=== PATIENT | male | born 1985 | race Caucasian/White ===

== ENCOUNTER 2019-12-16 22:48 | Emergency (ER) | payer OTHER ==
[~2019-12-16] VITALS: Ht 193 cm; Wt 90.7 kg
--- NOTE | 2019-12-16 22:51 | NUR ---
ED Nurse Note: Pt brought in by ambulance from home s/p seizure at home. Per girlfriend, he was standing and fell to the ground, hitting head and shaking x1min. PT is confused, Pt is A&ox2. VSS, Pt placed on human resources team member
[2019-12-16] MEDS ORDERED: XANAX0.25 MG ORAL (22:53)
[2019-12-16 23:00] VITALS: BP 139/69
[2019-12-16 23:10] LABS: BASOPHILS % (AUTO) 1.2 % (0.0-2.0); EOSINOPHILS % (AUTO) 0.3 % (0.0-3.0); HEMATOCRIT 49.3 % (42.0-52.0); HEMOGLOBIN 16.9 G/DL (14.2-18.0); LYMPHOCYTES % (AUTO) 29.8 % (20.0-45.0); MEAN CORPUSCULAR VOLUME 105 FL (80-99); MONOCYTES % (AUTO) 12.6 % (1.0-10.0); NEUTROPHILS % (AUTO) 56.2 % (45.0-75.0); PLATELET COUNT 210 K/UL (150-450); RED BLOOD COUNT 4.71 M/UL (4.70-6.10); RED CELL DISTRIBUTION WIDTH 11.4 % (11.6-14.8); WHITE BLOOD COUNT 12.6 K/UL (4.8-10.8)
[2019-12-16 23:36] LABS: ANION GAP 21 mmol/L (5-15); BLOOD UREA NITROGEN 9 mg/dL (7-18); CALCIUM 9.7 MG/DL (8.5-10.1); CARBON DIOXIDE 24 MMOL/L (21-32); CHLORIDE 99 MMOL/L (98-107); CREATININE 1.1 MG/DL (0.55-1.30); POTASSIUM 3.4 MMOL/L (3.5-5.1); SODIUM 143 MMOL/L (136-145)
--- NOTE | 2019-12-16 23:44 | Emergency Room Report ---
History of Present Illness General Chief Complaint: Seizure Source: Family Member, EMS Present Illness HPI Is a 34-year-old male presents after witnessed seizure. Patient had recently stopped drinking alcohol. Previously reports drinking alcohol daily for prolonged period of time. Patient states he also takes Xanax as well as Ativan intermittently. Patient had had some episodes of increased muscle spasming as well as nausea and vomiting. Had not been having any hematemesis or bloody stools recently. Reports having increased epigastric pain. Denies any recent trauma. Allergies: Coded Allergies: No Known Allergies (Unverified , 12/16/19) Patient History Past Medical History: see triage record Reviewed Nursing Documentation: PMH: Agreed; PSxH: Agreed Nursing Documentation-PM Past Medical History: No History, Except For Review of Systems All Other Systems: negative except mentioned in HPI Physical Exam Vital Signs Date Time Temp Pulse Resp B/P (MAP) Pulse Ox O2 Delivery O2 Flow Rate FiO2 12/16/19 22:44 104 18 139/69 (92) 98 Sp02 EP Interpretation: reviewed, normal General Appearance: normal inspection, well appearing, no apparent distress, alert, GCS 15 Head: atraumatic ENT: normal ENT inspection, hearing grossly normal, normal voice Neck: normal inspection, full range of motion, supple, no bony tend Respiratory: normal inspection, lungs clear, normal breath sounds, no respiratory distress, no retraction, no wheezing Cardiovascular #1: regular rate, rhythm, no edema Gastrointestinal: normal inspection, normal bowel sounds, non tender, soft, no guarding, no hernia Genitourinary: no CVA tenderness Musculoskeletal: normal inspection, back normal, normal range of motion Neurologic: alert, motor strength/tone normal, lehr attendant III-XII nml as tested, oriented x3, responsive, speech normal, normal inspection Psychiatric: normal inspection, judgement/insight normal, mood/affect normal Medical Decision Making Diagnostic Impression: Primary Impression: Alcohol abuse Additional Impression: Alcohol withdrawal seizure ER Course Patient presented for seizure. Differential diagnosis included alcohol withdrawal, hyponatremia, cysticercosis, electrolyte abnormality, mass lesion, or cranial hemorrhage. Imaging studies were ordered to patient's complaints of low back pain after the seizure. CT imaging read by radiology showed no evidence of acute abdominal process with some fatty liver. Patient was given medications for alcohol withdrawal including Ativan as well as GI cocktail. He was noted to have improvement was able to ambulate without assistance. At the time of discharge patient was awake alert and oriented. He did not appear to be tremulous and was not tachycardic. Appears to be stable for discharge. The patient is advised to follow up with primary care doctor in 1-2 days. Patient is advised to return if any worsening condition or if any changes in status that are concerning. This report is dictated with Nexgence adhesive primer software which may occasionally lead to discrepancies related to use of this software. Labs Test 12/16/19 22:55 12/17/19 02:00 White Blood Count 12.6 K/UL (4.8-10.8) Red Blood Count 4.71 M/UL (4.70-6.10) Hemoglobin 16.9 G/DL (14.2-18.0) Hematocrit 49.3 % (42.0-52.0) Mean Corpuscular Volume 105 FL (80-99) Mean Corpuscular Hemoglobin 35.8 PG (27.0-31.0) Mean Corpuscular Hemoglobin Concent 34.3 G/DL (32.0-36.0) Red Cell Distribution Width 11.4 % (11.6-14.8) Platelet Count 210 K/UL (150-450) Mean Platelet Volume 8.0 FL (6.5-10.1) Neutrophils (%) (Auto) 56.2 % (45.0-75.0) Lymphocytes (%) (Auto) 29.8 % (20.0-45.0) Monocytes (%) (Auto) 12.6 % (1.0-10.0) Eosinophils (%) (Auto) 0.3 % (0.0-3.0) Basophils (%) (Auto) 1.2 % (0.0-2.0) Sodium Level 143 MMOL/L (136-145) Potassium Level 3.4 MMOL/L (3.5-5.1) Chloride Level 99 MMOL/L (98-107) Carbon Dioxide Level 24 MMOL/L (21-32) Anion Gap 21 mmol/L (5-15) Blood Urea Nitrogen 9 mg/dL (7-18) Creatinine 1.1 MG/DL (0.55-1.30) Estimat Glomerular Filtration Rate > 60 mL/min (>60) Glucose Level 124 MG/DL (74-106) Calcium Level 9.7 MG/DL (8.5-10.1) Total Bilirubin 1.0 MG/DL (0.2-1.0) Aspartate Amino Transf (AST/SGOT) 108 U/L (15-37) Alanine Aminotransferase (ALT/SGPT) 122 U/L (12-78) Alkaline Phosphatase 86 U/L (46-116) Total Protein 8.3 G/DL (6.4-8.2) Albumin 4.3 G/DL (3.4-5.0) Globulin 4.0 g/dL Albumin/Globulin Ratio 1.1 (1.0-2.7) Lipase 84 U/L (73-393) Urine Color Pale yellow Urine Appearance Clear Urine pH 8 (4.5-8.0) Urine Specific Loco 1.015 (1.005-1.035) Urine Protein Negative (NEGATIVE) Urine Glucose (UA) Negative (NEGATIVE) Urine Ketones Negative (NEGATIVE) Urine Blood Negative (NEGATIVE) Urine Nitrite Negative (NEGATIVE) Urine Bilirubin Negative (NEGATIVE) Urine Urobilinogen Normal MG/DL (0.0-1.0) Urine Leukocyte Esterase Negative (NEGATIVE) Urine RBC 0-2 /HPF (0 - 0) Urine WBC 0 /HPF (0 - 0) Urine Squamous Epithelial Cells None /LPF (NONE/OCC) Urine Bacteria None /HPF (NONE) Urine Opiates Screen Negative (NEGATIVE) Urine Barbiturates Screen Negative (NEGATIVE) Phencyclidine (PCP) Screen Negative (NEGATIVE) Urine Amphetamines Screen Negative (NEGATIVE) Urine Benzodiazepines Screen Positive (NEGATIVE) Urine Cocaine Screen Negative (NEGATIVE) Urine Marijuana (THC) Screen Negative (NEGATIVE) Last Vital Signs Date Time Temp Pulse Resp B/P (MAP) Pulse Ox O2 Delivery O2 Flow Rate FiO2 12/16/19 22:44 104 18 139/69 (92) 98 Status: improved Disposition: HOME, SELF-CARE Condition: Stable Scripts Ondansetron Odt* (ZOFRAN ODT*) 4 Mg Tab.rapdis 4 MG BC EVERY 8 HOURS PRN for Nausea & Vomiting, #10 TAB 0 Refills Prov: Walter Singletary MD 12/17/19 Omeprazole (OMEPRAZOLE) 20 Mg Capsule.dr 20 MG ORAL DAILY, #30 CAP Prov: Walter Singletary MD 12/17/19 Lorazepam* (ATIVAN*) 1 Mg Tablet 1 MG ORAL THREE TIMES A DAY, #14 TAB Prov: Walter Singletary MD 12/17/19 Referrals: NON PHYSICIAN (PCP) Walter Singletary MD Dec 16, 2019 23:44
[2019-12-16] MEDS ORDERED: LORazepam Inj 2mg/ml 1ml IV ONE (23:45)
[2019-12-16] MEDS ORDERED: Thiamine HCl 100 MG in D5W 55 ML IVPB ONE (23:45)
[2019-12-16 23:47] LABS: ALANINE AMINOTRANSFERASE 122 U/L (12-78); ALBUMIN 4.3 G/DL (3.4-5.0); ALBUMIN/GLOBULIN RATIO 1.1 (1.0-2.7); ALKALINE PHOSPHATASE 86 U/L (46-116); ASPARTATE AMINO TRANSFERASE 108 U/L (15-37)
[2019-12-17 01:30] VITALS: BP 132/65
[2019-12-17] MEDS ORDERED: Omnipaque-300 100ml vial INJ PRN (01:45)
--- NOTE | 2019-12-17 02:10 | NUR ---
ED Nurse Note: Pt to CT
--- NOTE | 2019-12-17 02:40 | NUR ---
ED Nurse Note: pt back from ct
[2019-12-17 03:04] LABS: APPEARANCE,URINE CLEAR; BILIRUBIN, URINE NEGATIVE (NEGATIVE); COLOR,URINE PALE YELLOW; GLUCOSE, URINE (UA) NEGATIVE (NEGATIVE); KETONES,URINE NEGATIVE (NEGATIVE); LEUKOCYTE ESTERASE ,URINE NEGATIVE (NEGATIVE); NITRITE,URINE NEGATIVE (NEGATIVE); PH,URINE 8 (4.5-8.0); UROBILINOGEN,URINE NORMAL MG/DL (0.0-1.0)
[2019-12-17 03:05] LABS: PROTEIN,URINE NEGATIVE (NEGATIVE)
[2019-12-17] MEDS ORDERED: Sucralfate 1gm tab ORAL ONE (03:15)
[2019-12-17] MEDS ORDERED: Dextrose 5%/Lactated Ringer's 1,000 ML IV SCH (03:15)
[2019-12-17] MEDS ORDERED: ONDANSETRON ODT4 MG BC (03:20)
[2019-12-17] MEDS ORDERED: OMEPRAZOLE20 M2 ORAL (03:20)
[2019-12-17] MEDS ORDERED: ATIVAN1 MG ORAL (03:20)
[2019-12-17 03:30] VITALS: BP 128/67
--- NOTE | 2019-12-17 03:49 | Diagnostic Imaging Report ---
INDICATION: Abdominal pain TECHNIQUE: Continuous helical transaxial imaging of the abdomen and pelvis was obtained from the lung bases to the pubic symphysis during intravenous contrast administration. Coronal 2-D reformats were also obtained. Study obtained in a Siemens sensation [address] Automatic Exposure Control was utilized. Total Dose length Product (DLP): 450.[address] Dose Index Volume (CTDIvol): 70.4 mGy COMPARISON: None FINDINGS: Lungs: There is posterior basal atelectasis demonstrated.. Liver: Liver is diffusely hypodense consistent with fatty infiltration Gallbladder/biliary system: No gallstones are identified. There is no evidence of intrahepatic or extrahepatic biliary ductal dilatation. Spleen: Unremarkable Pancreas: Unremarkable Kidneys/Bladder: No hydronephrosis identified. Both kidneys enhance symmetrically. The urinary bladder is unremarkable.. Adrenal glands: Unremarkable Aorta/IVC: Unremarkable Bowel: There is no evidence of bowel obstruction. Peritoneum: There is no free fluid. Bones: Unremarkable IMPRESSION: Fatty liver Basal atelectasis. [facility] has communicated the preliminary results to the Emergency Department. Their findings are largely concordant with this report. The CT scanner at [facility] is accredited by the [employer] and the scans are performed using dose optimization techniques as appropriate to a performed exam including Automatic Exposure control.
[2019-12-17] MEDS ORDERED: Ketorolac 30mg Inj IV ONE (04:00)
[2019-12-17 04:30] VITALS: BP 128/67
--- NOTE | 2019-12-17 04:30 | NUR ---
ER DISCHARGE NOTE: Patient is cleared to be discharged per ERMD, pt is aox4, on room air, with stable vital signs. pt was given dc and prescription instructions, pt was able to verbalize understanding, pt id band and iv site removed without complications. pt is able to ambulate with steady gait. pt took all belongings. pt given crutches to help ambulate, pt reported it is easier walking with it. spouse present
== END 2019-12-17 04:30 | disposition home or self-care (01) ==
LOC: EDBD 22:48 → EMR 23:00
DX: F10.239 Alcohol dependence with withdrawal, unspecified (principal); G40.89 Other seizures; Y90.9 Presence of alcohol in blood, level not specified
CPT/HCPCS: 36415; 74177; 80053; 80307; 81001; 82962; 83690; 85025; 93005; 96365; 96367; 96375; J1885; J2405; J7030; Q9967; S0028; Z7502; 99284; J8499

== ENCOUNTER 2020-02-10 15:46 | Emergency (ER) | payer OTHER ==
[~2020-02-10] VITALS: Ht 193 cm; Wt 83.9 kg
[~2020-02-10 15:46] MED LIST: ATIVAN1 MG ORAL; OMEPRAZOLE20 M2 ORAL; ONDANSETRON ODT4 MG BC; XANAX0.25 MG ORAL
--- NOTE | 2020-02-10 16:12 | Emergency Room Report ---
History of Present Illness General Chief Complaint: Pain Source: Patient Present Illness HPI Patient is a 34-year-old male presents after increased upper abdominal pain and chest discomfort. Prior history of alcohol abuse. He reports quitting drinking approximately a month and a half ago. Reports taking alprazolam daily but denies taking any other medications. Denies any bloody stools. Not been vomiting. Pain is worse with deep breath. Patient had previous CT imaging which did not show any evidence of pulmonary embolism but did show some atelectasis. Denies any stool abnormalities. Had not been having any fever. Denies any cough. Allergies: Coded Allergies: No Known Allergies (Unverified , 12/16/19) COVID-19 Screening Contact w/high risk pt: No Recent Travel to affected area: No Experienced COVID-19 symptoms?: No Patient History Past Medical History: see triage record Reviewed Nursing Documentation: PMH: Agreed; PSxH: Agreed Nursing Documentation-PM Past Medical History: No History, Except For Hx Seizures: Yes Physical Exam Vital Signs Date Time Temp Pulse Resp B/P (MAP) Pulse Ox O2 Delivery O2 Flow Rate FiO2 02/10/20 15:52 98.2 96 17 127/76 (93) 98 Room Air Sp02 EP Interpretation: reviewed, normal General Appearance: normal inspection, well appearing, no apparent distress, alert, GCS 15 Head: atraumatic ENT: normal ENT inspection, hearing grossly normal, normal voice Neck: normal inspection, full range of motion, supple, no bony tend Respiratory: normal inspection, lungs clear, normal breath sounds, no respiratory distress, no retraction, no wheezing Cardiovascular #1: regular rate, rhythm, no edema Gastrointestinal: normal inspection, normal bowel sounds, non tender, soft, no guarding, no hernia Genitourinary: no CVA tenderness Musculoskeletal: normal inspection, back normal, normal range of motion Neurologic: alert, motor strength/tone normal, phosphorus processing supervisor III-XII nml as tested, oriented x3, responsive, speech normal, normal inspection Psychiatric: normal inspection, judgement/insight normal, mood/affect normal Skin: no rash Medical Decision Making Diagnostic Impression: Primary Impression: Gastritis Additional Impression: Fatty liver ER Course Patient presented for upper abdominal pain. Differential diagnosis include was not limited to myocardial infarction, gastritis, pancreatitis, peptic ulcer disease among others. Because of complexity of patient's case laboratory tests and imaging studies were ordered. Patient was noted to have prior history of alcohol abuse. He states pain is been ongoing for prolonged period of time. Does not appear to have any exertional component. Does not appear to have any known exposure to coronavirus. Patient symptoms appear to be related to some gastric irritation. He was given a GI cocktail. Patient was advised to follow- up with primary care physician for GI referral. Patient was advised to return if increased shortness of breath, worsening pain or other concerns. He was given prescription for omeprazole as well as dicyclomine. Labs Test 02/10/20 16:25 White Blood Count 8.6 K/UL (4.8-10.8) Red Blood Count 4.45 M/UL (4.70-6.10) Hemoglobin 15.0 G/DL (14.2-18.0) Hematocrit 45.3 % (42.0-52.0) Mean Corpuscular Volume 102 FL (80-99) Mean Corpuscular Hemoglobin 33.6 PG (27.0-31.0) Mean Corpuscular Hemoglobin Concent 33.1 G/DL (32.0-36.0) Red Cell Distribution Width 11.8 % (11.6-14.8) Platelet Count 268 K/UL (150-450) Mean Platelet Volume 7.4 FL (6.5-10.1) Neutrophils (%) (Auto) 55.4 % (45.0-75.0) Lymphocytes (%) (Auto) 33.2 % (20.0-45.0) Monocytes (%) (Auto) 8.9 % (1.0-10.0) Eosinophils (%) (Auto) 1.5 % (0.0-3.0) Basophils (%) (Auto) 1.0 % (0.0-2.0) Sodium Level 138 MMOL/L (136-145) Potassium Level 3.6 MMOL/L (3.5-5.1) Chloride Level 106 MMOL/L (98-107) Carbon Dioxide Level 27 MMOL/L (21-32) Anion Gap 5 mmol/L (5-15) Blood Urea Nitrogen 10 mg/dL (7-18) Creatinine 1.0 MG/DL (0.55-1.30) Estimat Glomerular Filtration Rate > 60 mL/min (>60) Glucose Level 96 MG/DL (74-106) Calcium Level 9.1 MG/DL (8.5-10.1) Total Bilirubin 0.3 MG/DL (0.2-1.0) Aspartate Amino Transf (AST/SGOT) 24 U/L (15-37) Alanine Aminotransferase (ALT/SGPT) 36 U/L (12-78) Alkaline Phosphatase 71 U/L (46-116) Troponin I 0.000 ng/mL (0.000-0.056) Total Protein 7.9 G/DL (6.4-8.2) Albumin 4.0 G/DL (3.4-5.0) Globulin 3.9 g/dL Albumin/Globulin Ratio 1.0 (1.0-2.7) Lipase 88 U/L (73-393) EKG Diagnostic Results Rate: normal Rhythm: NSR ST Segments: no acute changes Last Vital Signs Date Time Temp Pulse Resp B/P (MAP) Pulse Ox O2 Delivery O2 Flow Rate FiO2 02/10/20 15:52 98.2 96 17 127/76 (93) 98 Room Air Status: improved Disposition: HOME, SELF-CARE Condition: Stable Scripts Dicyclomine Hcl* (DICYCLOMINE HCL*) 10 Mg Capsule 10 MG ORAL QID, #20 CAP Prov: Walter Singletary MD 02/10/20 Omeprazole Magnesium (PRILOSEC OTC) 20 Mg Tablet. 20 MG ORAL DAILY, #30 TAB Prov: Walter Singletary MD 02/10/20 Walter Singletary MD Feb 10, 2020 16:12
[2020-02-10] MEDS ORDERED: Mylanta II UD 30ml ORAL ONE (16:15)
[2020-02-10] MEDS ORDERED: Dicyclomine HCl 10mg/5ml oral soln ORAL ONE (16:15)
[2020-02-10] MEDS ORDERED: Lidocaine 2% Visc 15ml soln ORAL ONE (16:15)
[2020-02-10 16:31] VITALS: BP 127/76
[2020-02-10 16:47] LABS: EOSINOPHILS % (AUTO) 1.5 % (0.0-3.0); HEMATOCRIT 45.3 % (42.0-52.0); LYMPHOCYTES % (AUTO) 33.2 % (20.0-45.0); MEAN CORPUSCULAR VOLUME 102 FL (80-99); MONOCYTES % (AUTO) 8.9 % (1.0-10.0); NEUTROPHILS % (AUTO) 55.4 % (45.0-75.0); PLATELET COUNT 268 K/UL (150-450); RED BLOOD COUNT 4.45 M/UL (4.70-6.10); RED CELL DISTRIBUTION WIDTH 11.8 % (11.6-14.8); WHITE BLOOD COUNT 8.6 K/UL (4.8-10.8)
[2020-02-10 16:55] LABS: ANION GAP 5 mmol/L (5-15); BLOOD UREA NITROGEN 10 mg/dL (7-18); CALCIUM 9.1 MG/DL (8.5-10.1); CARBON DIOXIDE 27 MMOL/L (21-32); CHLORIDE 106 MMOL/L (98-107); POTASSIUM 3.6 MMOL/L (3.5-5.1); SODIUM 138 MMOL/L (136-145)
--- NOTE | 2020-02-10 16:57 | Diagnostic Imaging Report ---
Indication: Shortness of breath Technique: One view of the chest Comparison: none Findings: Lungs and pleural spaces are clear. Heart size is normal. Impression: No acute process
[2020-02-10 17:00] LABS: ALANINE AMINOTRANSFERASE 36 U/L (12-78); ALKALINE PHOSPHATASE 71 U/L (46-116); ASPARTATE AMINO TRANSFERASE 24 U/L (15-37); BILIRUBIN,TOTAL 0.3 MG/DL (0.2-1.0)
[2020-02-10] MEDS ORDERED: PRILOSEC OTC20 MG ORAL (17:03)
[2020-02-10] MEDS ORDERED: DICYCLOMINE HCL10 MG ORAL (17:03)
[2020-02-10 17:20] VITALS: BP 127/76
== END 2020-02-10 17:31 | disposition home or self-care (01) ==
LOC: EMR 16:05
DX: K29.70 Gastritis, unspecified, without bleeding (principal); K76.0 Fatty (change of) liver, not elsewhere classified; Z79.899 Other long term (current) drug therapy; G40.909 Epilepsy, unspecified, not intractable, without status epilepticus; J98.11 Atelectasis; R06.02 Shortness of breath
CPT/HCPCS: 36415; 71045; 80053; 83690; 84484; 85025; 93005; Z7502; 99283

== ENCOUNTER 2020-07-27 13:23 | Emergency (ER) | payer OTHER ==
[~2020-07-27] VITALS: Ht 193 cm; Wt 83.9 kg
[~2020-07-27 13:23] MED LIST changes: +DICYCLOMINE HCL10 MG ORAL; +PRILOSEC OTC20 MG ORAL
[2020-07-27 13:28] VITALS: BP 133/85
[2020-07-27] MEDS ORDERED: LIBRIUM25 MG ORAL (14:26)
--- NOTE | 2020-07-27 14:26 | Emergency Room Report ---
History of Present Illness General Chief Complaint: Seizure Source: Patient Present Illness HPI 34-year-old male history of alcohol withdrawal seizures in the past presents with concerns of seizure trying to slowly wean himself off alcohol patient states that he wants to try cutting his alcohol use, patient reports that he last drank mimosas this morning, denies feeling tremulous shaky or having any chest pain no nausea no vomiting, patient wants to try outpatient weaning. He feels concerned, concerned started this morning because he wants to try weaning off, severity is mild, aggravated when he tries to wean off alcohol alleviated when he is on alcohol. Patient presents for evaluation and treatment Allergies: Coded Allergies: No Known Allergies (Unverified , 12/16/19) COVID-19 Screening Contact w/high risk pt: No Recent Travel to affected area: No Experienced COVID-19 symptoms?: No COVID-19 Testing performed SALES ATTENDANT: No COVID-19 Screening: Negative COVID-19 COVID-19 Testing Source: 2wks ago Patient History Past Medical History: see triage record Social History: Reports: alcohol use Reviewed Nursing Documentation: PMH: Agreed; PSxH: Agreed Nursing Documentation-PMH Hx Seizures: Yes Review of Systems All Other Systems: negative except mentioned in HPI Physical Exam Vital Signs Date Time Temp Pulse Resp B/P (MAP) Pulse Ox O2 Delivery O2 Flow Rate FiO2 07/27/20 14:01 98.2 105 18 145/96 (112) 98 Room Air General Appearance: well appearing, no apparent distress Head: normocephalic, atraumatic ENT: hearing grossly normal, normal voice Neck: full range of motion, supple Respiratory: no respiratory distress, speaking full sentences Neurologic: alert, normal gait, other - No tremors no tremulousness Psychiatric: mood/affect normal Skin: no rash Medical Decision Making Diagnostic Impression: Primary Impression: Alcohol abuse ER Course 34-year-old male presents with requesting alcohol withdrawal treatment. Joint decision was made with patient to wean off alcohol utilizing a Librium taper Patient given a Librium taper, patient also provided with multiple resources for drug rehab. Strict return precautions for seizures were discussed follow-up with PCP Sebastian report was ran Last Vital Signs Date Time Temp Pulse Resp B/P (MAP) Pulse Ox O2 Delivery O2 Flow Rate FiO2 07/27/20 14:01 98.2 105 18 145/96 (112) 98 Room Air Disposition: HOME, SELF-CARE Condition: Stable Scripts Chlordiazepoxide (Chlordiazepoxide HCl) 25 Mg Capsule 25 MG ORAL THREE TIMES A DAY, #15 CAP 0 Refills Prov: Biju Morse MD 07/27/20 Referrals: [facility] Patient Instructions: Alcohol Use Disorder, Alcohol Withdrawal, [id number] Additional Instructions: The patient was provided with discharge instructions, notified to follow-up with a primary care doctor and or specialist in the next 24-48 hours, and to return to the ED if they have worsening of their symptoms. Please note that this report is being documented using Notizza technology. This can lead to erroneous entry secondary to incorrect interpretation by the dictating instrument. LIBRIUM TAPER Day 1: 50mg EVERY 6 HOURS Day 2: 25mg EVERY 6 HOURS Day 3: 25mg EVERY 12 HOURS Day 4: 25mg AT NIGHT Biju Morse MD Jul 27, 2020 14:26
[2020-07-27] MEDS ORDERED: chlordiazePOXIDE 25mg Cap ORAL ONE (14:30)
[2020-07-27 14:38] VITALS: BP 137/91
== END 2020-07-27 14:38 | disposition home or self-care (01) ==
LOC: EMR 14:25
DX: F10.10 Alcohol abuse, uncomplicated (principal); G40.909 Epilepsy, unspecified, not intractable, without status epilepticus
CPT/HCPCS: 99282

== ENCOUNTER 2020-08-03 14:20 | Emergency (ER) | payer OTHER ==
[~2020-08-03] VITALS: Ht 190.5 cm; Wt 83.9 kg
[~2020-08-03 14:20] MED LIST changes: +LIBRIUM25 MG ORAL
[2020-08-03 14:34] VITALS: BP 144/95
--- NOTE | 2020-08-03 14:36 | NUR ---
ED Nurse Note:Patient is trying to stop drinking alcohol and came for meds to help him stop.
[2020-08-03] MEDS ORDERED: ATIVAN1 MG ORAL (14:44)
--- NOTE | 2020-08-03 17:35 | Emergency Room Report ---
History of Present Illness General Chief Complaint: Medication Refill Source: Patient Present Illness HPI 34-year-old male presents to ED for evaluation. Patient states that he is recently stopped drinking alcohol and feels like he is going through withdrawals. Feels shaky. States he has had seizures previously. States he was prescribed Librium the last time he was here but states it did not work. States he has high tolerance to benzos as he normally used to take 2 mg of Xanax daily. Denies drug use. Denies any alcohol use at this time. Denies SI or HI. Denies hearing voices. No other aggravating relieving factors. Denies any other associated symptoms Allergies: Coded Allergies: No Known Allergies (Unverified , 12/16/19) COVID-19 Screening Contact w/high risk pt: No Recent Travel to affected area: No Experienced COVID-19 symptoms?: No COVID-19 Testing performed FLOATING OPERATOR: No Patient History Past Medical History: none Past Surgical History: none Pertinent Family History: none Social History: Reports: alcohol use; Denies: smoking, drug use Immunizations: UTD Reviewed Nursing Documentation: PMH: Agreed; PSxH: Agreed Nursing Documentation-PMH Past Medical History: No History, Except For Hx Seizures: Yes Review of Systems All Other Systems: negative except mentioned in HPI Physical Exam Vital Signs Date Time Temp Pulse Resp B/P (MAP) Pulse Ox O2 Delivery O2 Flow Rate FiO2 08/03/20 14:26 98.1 102 17 144/95 (111) 99 Room Air Sp02 EP Interpretation: reviewed, normal General Appearance: no apparent distress, alert, GCS 15, non-toxic Head: normocephalic, atraumatic Eyes: bilateral eye normal inspection, bilateral eye PERRL ENT: hearing grossly normal, normal pharynx, no angioedema, normal voice Neck: full range of motion, supple/symm/no masses Respiratory: chest non-tender, lungs clear, normal breath sounds, speaking full sentences Cardiovascular #1: regular rate, rhythm, no edema Cardiovascular #2: 2+ carotid (R), 2+ carotid (L), 2+ radial (R), 2+ radial (L), 2+ dorsalis pedis (R), 2+ dorsalis pedis (L) Gastrointestinal: normal bowel sounds, non tender, soft, non-distended, no guarding, no rebound Rectal: deferred Genitourinary: normal inspection, no CVA tenderness Musculoskeletal: back normal, normal range of motion, gait/station normal, non- tender Neurologic: alert, motor strength/tone normal, oriented x3, sensory intact, responsive, speech normal Psychiatric: judgement/insight normal, memory normal, no suicidal/homicidal ideation, no delusions, anxious Reflexes: 3+ bicep (R), 3+ bicep (L), 3+ tricep (R), 3+ tricep (L), 3+ knee (R), 3+ knee (L) Skin: no rash Lymphatic: no adenopathy Medical Decision Making Diagnostic Impression: Primary Impression: Alcohol withdrawal Qualified Codes: F10.239 - Alcohol dependence with withdrawal, unspecified ER Course Hospital Course 34-year-old male presents ED states that he is going through alcohol withdrawal. Differential diagnoses include: Alcohol intoxication, drug abuse, opioid withdrawal, alcohol withdrawal, dehydration, drug seeking behavior Clinical course Patient placed chair. Stable vitals. Patient alert oriented x3. Not tremulous. No signs of DTs. Was previously prescribed Librium which is a short acting medication. Will attempt a trial with longer acting benzo like Ativan. Will provide referrals to PMD and detox. Safe for discharge close outpatient follow-up. Patient agrees to plan i. I feel this is a highly complex case requiring extensive working including EKG/Rhythm strip, Xray/CT/US, Blood/urine lab work, repeat exams while in ED, and administration of strong opiates/narcotics for pain control, admission to hospital or close patient follow up. Diagnosis - alcohol withdrawal Stable and discharged to home with prescription for ativan. Followup with PMD. Return to ED if symptoms recur or worsen Last Vital Signs Date Time Temp Pulse Resp B/P (MAP) Pulse Ox O2 Delivery O2 Flow Rate FiO2 08/03/20 14:34 98.1 17 144/95 99 Room Air 08/03/20 14:26 102 Status: improved Disposition: HOME, SELF-CARE Condition: Stable Scripts Lorazepam* (ATIVAN*) 1 Mg Tablet 1 MG ORAL THREE TIMES A DAY, #15 TAB Prov: Des Ann MD 08/03/20 Referrals: [facility] Patient Instructions: Alcohol Intoxication, [id number] Des Ann MD Aug 03, 2020 17:34
[2020-08-03 18:20] VITALS: BP 144/95
== END 2020-08-03 18:20 | disposition home or self-care (01) ==
LOC: EMR 14:40
DX: F10.239 Alcohol dependence with withdrawal, unspecified (principal); G40.909 Epilepsy, unspecified, not intractable, without status epilepticus
CPT/HCPCS: 99282